=== PATIENT | female | born 1985 | race Caucasian/White ===

== ENCOUNTER 2017-05-31 18:22 | Emergency (ER) | payer SELFPAY ==
[~2017-05-31] VITALS: Ht 149.9 cm; Wt 80.7 kg
[2017-05-31 18:31] VITALS: BP 123/75
--- NOTE | 2017-05-31 18:48 | NUR ---
PT AMBULATED TO BED 2
--- NOTE | 2017-05-31 19:14 | NUR ---
Pt presents to ED after having left breat pain x4 days. Pt states she felt a lump in her left breast. Pt denies medical history or presently getting brest exam. VSS. Pt in bed in POC. at bedside for support. ER MD aware. Continue to monitor.
--- NOTE | 2017-05-31 20:23 | NUR ---
CHAPPERONED DR HAWKINS AT BEDSIDE DURING BREAST EXAMINATION
[2017-05-31 21:15] VITALS: BP 120/72
== END 2017-05-31 21:15 | disposition home or self-care (01) ==
LOC: MED 18:22
DX: N60.12 Diffuse cystic mastopathy of left breast (principal)
CPT/HCPCS: 81002; 81025; 99283

== ENCOUNTER 2018-04-05 10:29 | Emergency (ER) | payer SELFPAY ==
[~2018-04-05] VITALS: Ht 160 cm; Wt 95.7 kg
[2018-04-05 10:43] VITALS: BP 120/83
[2018-04-05 10:55] VITALS: BP 120/83
[2018-04-05 11:31] LABS: BASOPHILS # (AUTO) 0.1 K/uL (0.00-0.22); BASOPHILS % (AUTO) 0.9 % (0.0-2.0); EOSINOPHILS # (AUTO) 0.1 K/uL (0-0.4); EOSINOPHILS % (AUTO) 0.8 % (0.0-4.0); LYMPHOCYTES % (AUTO) 19.6 % (20.5-51.1); MEAN CORPUSCULAR HEMOGLOBIN 23 pg (27-31); MEAN CORPUSCULAR HGB CONC 32 g/dL (33-37); MEAN CORPUSCULAR VOLUME 72.1 fL (80-94); MONOCYTES # (AUTO) 0.6 K/uL (0.8-1.0); MONOCYTES % (AUTO) 5.5 % (1.7-9.3); NEUTROPHILS # (AUTO) 7.4 K/uL (1.8-7.7); NEUTROPHILS % (AUTO) 73.2 % (42.2-75.2); PLATELET COUNT (AUTO) 337 K/uL (140-450); RED BLOOD CELL COUNT(AUTO) 5.27 MIL/uL (4.20-5.40); RED CELL DISTRIBUTION WIDTH 15.5 % (11.6-13.7); WHITE BLOOD COUNT (AUTO) 10.1 K/uL (4.8-10.8)
[2018-04-05 11:58] LABS: ALBUMIN 2.8 g/dL (3.4-5.0); ANION GAP 13.2 (8-16); CARBON DIOXIDE 21.9 mmol/L (21-32); CREATININE 0.6 mg/dL (0.6-1.3); POTASSIUM 4.1 mmol/L (3.5-5.1); TOTAL BILIRUBIN 0.3 mg/dL (0.0-1.0)
[2018-04-05 14:01] LABS: APPEARANCE,URINE HAZY (CLEAR); BILIRUBIN,URINE NEGATIVE (NEGATIVE); BLOOD, URINE NEGATIVE (NEGATIVE); COLOR,URINE YELLOW (YELLOW); LEUKOCYTE ESTERASE ,URINE TRACE (NEGATIVE); NITRITE, URINE NEGATIVE (NEGATIVE); UGLUCOSE NEGATIVE (NEGATIVE)
[2018-04-05 14:47] LABS: RBC,URINE 0-5 (RARE) /HPF (0-5); WBC,URINE 6-15 (FEW) /HPF (0-5)
== END 2018-04-05 15:06 | disposition home or self-care (01) ==
LOC: MED 10:29
DX: O23.43 Unspecified infection of urinary tract in pregnancy, third trimester (principal); Z3A.37 37 weeks gestation of pregnancy
CPT/HCPCS: 36415; 76805; 80053; 81001; 81025; 84702; 85025; 86900; 86901; 87086; 99284; Q0092